=== PATIENT | male | born 1950 | race Caucasian/White ===

== ENCOUNTER → 2024-10-28 09:15 | Outpatient (CLI) | payer SELFPAY ==
[2025-03-18 11:29] LABS: Campylobacter Culture Final report (.); E coli Shiga Toxin EIA Negative (Negative); Salmonella/Shigella Screen Final report (.)
[2025-03-18 11:29] LABS: Campylobacter Culture Final report (.); E coli Shiga Toxin EIA Positive (Negative); Salmonella/Shigella Screen Final report (.)
== END ==
DX: Z00.00 Encounter for general adult medical examination without abnormal findings (principal)
CPT/HCPCS: 87045; 87493